=== PATIENT | female | born 1995 | race Caucasian/White ===

== ENCOUNTER 2018-07-25 11:15 | Emergency (ER) | payer OTHER ==
--- NOTE | 2018-07-25 12:36 | ER ---
Nurse's Notes [facility] Name: Meryl Vernon Age: 23 yrs Sex: Female : 1995 Arrival Date: 07/25/2018 Time: 11:18 Bed Treatment Private MD: None, None Diagnosis: Acute sinusitis Presentation: 07/25 11:39 Presenting complaint: Patient states: Sinus pressure, sore throat, cough, congestion aj1 and upper back pain since yesterday. Denies fever, SOB. Patient reports that she is currently 10 weeks . Transition of care: patient was not received from another setting of care. Onset of symptoms was July 24, 2018. Risk Assessment: Do you want to hurt yourself or someone else? Patient reports no desire to harm self or others. Initial Sepsis Screen: Does the patient meet any 2 criteria?. Initial Sepsis Screen: Does the patient meet any 2 criteria? HR > 90 bpm. No. Patient's initial sepsis screen is negative. Does the patient have a suspected source of infection? Yes: Productive cough/pneumonia. Care prior to arrival: None. 11:39 Method Of Arrival: Ambulatory aj1 11:39 Acuity: LILLIAN 4 aj1 Triage Assessment: 11:41 General: Appears in no apparent distress. comfortable, Behavior is calm, cooperative, aj1 appropriate for age. Pain: Denies pain. EENT: Reports nasal congestion nasal discharge sore throat. Neuro: Level of Consciousness is awake, alert, obeys commands. Cardiovascular: Patient's skin is warm and dry. Respiratory: Reports cough that is non-productive, Airway is patent Respiratory effort is even, unlabored, Respiratory pattern is regular, symmetrical, Denies shortness of breath. 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 - Social history:: Smoking status: Patient/guardian denies using tobacco. - Ebola Screening: : Patient denies travel to an Ebola-affected area in the 21 days before illness onset. Vital Signs: 11:41 BP 121 / 87; Pulse 86; Resp 20; Temp 97.7; Pulse Ox 99% on R/A; Weight 69.85 kg (R); aj1 Height 5 ft. 1 in. (154.94 cm) (R); Pain 0/10; 11:41 Body Mass Index 29.10 (69.85 kg, 154.94 cm) aj1 ED Course: 11:18 Patient arrived in ED. sb2 11:19 None, None is Private Physician. sb2 11:41 Triage completed. aj1 11:41 Arm band placed on Patient placed in an exam room. aj1 11:42 [facility] kb 11:42 Isidro Carbajal MD is Attending Physician. kb Administered Medications: No medications were administered Outcome: 12:35 Discharge ordered by . kb 12:46 Patient left the ED. hb Signatures: Do Ott FNP-C FNP-Ckb Johnson, Angela, RN RN aj1 Radha Boone RN RN Phyllis Clayton sb2
--- NOTE | 2018-07-25 12:36 | EDPHYS ---
Physician Documentation [facility] Name: Meryl Vernon Age: 23 yrs Sex: Female : 1995 Arrival Date: 07/25/2018 Time: 11:18 Bed Treatment Private MD: None, None ED Physician Isidro Carbajal HPI: 07/25 12:32 This 23 yrs old Female presents to ER via Ambulatory with complaints of Sore kb Throat, Sinus Pain. 12:32 The patient presents with sore throat. The patient describes throat pain as constant. kb Onset: The symptoms/episode began/occurred yesterday. Severity of symptoms: At their worst the symptoms were moderate, in the emergency department the symptoms are unchanged. Modifying factors: The symptoms are alleviated by nothing, the symptoms are aggravated by nothing, Patient's oral intake status: good. Associated signs and symptoms: Pertinent positives: cough, Sore throat. The patient has not experienced similar symptoms in the past. The patient has not recently seen a physician. Pt reports cough and congestion that started yesterday. Denies fever. . 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 - Social history:: Smoking status: Patient/guardian denies using tobacco. - Ebola Screening: : Patient denies travel to an Ebola-affected area in the 21 days before illness onset. ROS: 12:31 Constitutional: Negative for fever, chills, and weight loss, Neck: Negative for injury, kb pain, and swelling, Cardiovascular: Negative for chest pain, palpitations, and edema, Abdomen/GI: Negative for abdominal pain, nausea, vomiting, diarrhea, and constipation, Back: Negative for injury and pain, MS/Extremity: Negative for injury and deformity, Skin: Negative for injury, rash, and discoloration, Neuro: Negative for headache, weakness, numbness, tingling, and seizure. 12:31 ENT: Positive for rhinorrhea, sinus congestion. 12:31 Respiratory: Positive for cough, Negative for dyspnea on exertion, hemoptysis, orthopnea, pleurisy, shortness of breath, sputum production, wheezing. Exam: 12:32 Constitutional: This is a well developed, well nourished patient who is awake, alert, kb and in no acute distress. Head/Face: Normocephalic, atraumatic. ENT: Nares patent. No nasal discharge, no septal abnormalities noted. Tympanic membranes are normal and external auditory canals are clear. Oropharynx with no redness, swelling, or masses, exudates, or evidence of obstruction, uvula midline. Mucous membranes moist. Neck: Trachea midline, no thyromegaly or masses palpated, and no cervical lymphadenopathy. Supple, full range of motion without nuchal rigidity, or vertebral point tenderness. No Meningismus. Chest/axilla: Normal chest wall appearance and motion. Nontender with no deformity. No lesions are appreciated. Cardiovascular: Regular rate and rhythm with a normal S1 and S2. No gallops, murmurs, or rubs. Normal PMI, no JVD. No pulse deficits. Respiratory: Lungs have equal breath sounds bilaterally, clear to auscultation and percussion. No rales, rhonchi or wheezes noted. No increased work of breathing, no retractions or nasal flaring. Abdomen/GI: Soft, non-tender, with normal bowel sounds. No distension or tympany. No guarding or rebound. No evidence of tenderness throughout. Skin: Warm, dry with normal turgor. Normal color with no rashes, no lesions, and no evidence of cellulitis. MS/ Extremity: Pulses equal, no cyanosis. Neurovascular intact. Full, normal range of motion. Neuro: Awake and alert, GCS 15, oriented to person, place, time, and situation. Cranial nerves II-XII grossly intact. Motor strength 5/5 in all extremities. Sensory grossly intact. Cerebellar exam normal. Normal gait. Vital Signs: 11:41 BP 121 / 87; Pulse 86; Resp 20; Temp 97.7; Pulse Ox 99% on R/A; Weight 69.85 kg (R); aj1 Height 5 ft. 1 in. (154.94 cm) (R); Pain 0/10; 11:41 Body Mass Index 29.10 (69.85 kg, 154.94 cm) aj1 MDM: 12:31 Data reviewed: vital signs, nurses notes. Data interpreted: Pulse oximetry: on room air kb is 99 %. Interpretation: normal. Counseling: I had a detailed discussion with the patient and/or guardian regarding: the historical points, exam findings, and any diagnostic results supporting the discharge/admit diagnosis, lab results, the need for outpatient follow up, a family practitioner, to return to the emergency department if symptoms worsen or persist or if there are any questions or concerns that arise at home. 07/25 11:43 Order name: Flu; Complete Time: 12:31 07/25 11:43 Order name: Strep; Complete Time: 12:11 07/25 12:05 Order name: Throat Culture EDMS MDM: 11:44 Patient medically screened. kb 07/25 11:43 Order name: Flu; Complete Time: 12:31 07/25 11:43 Order name: Strep; Complete Time: 12:11 07/25 12:05 Order name: Throat Culture EDMS Administered Medications: No medications were administered Disposition: 13:29 Co-signature as Attending Physician, Isidro Carbajal MD. rn Disposition: 07/25/18 12:35 Discharged to Home. Impression: Acute sinusitis. - Condition is Stable. - Discharge Instructions: Sinusitis, Adult, [id number]. - Medication Reconciliation Form, Thank You Letter, Antibiotic Education, Prescription Opioid Use form. - Follow up: Emergency Department; When: As needed; Reason: Worsening of condition. Follow up: Private Physician; When: 2 - 3 days; Reason: Recheck today's complaints, Continuance of care, Re-evaluation by your physician. Signatures: Dispatcher Med[facility] EDMN Do Ott, LIZETH VARGASP-Mary Stuart RN RN aj1 Isidro Carbajal MD MD rn Baxter, Heather, RN RN hb Corrections: (The following items were deleted from the chart) 12:46 12:35 07/25/2018 12:35 Discharged to Home. Impression: Acute sinusitis. Condition is hb Stable. Forms are Medication Reconciliation Form, Thank You Letter, Antibiotic Education, Prescription Opioid Use. Follow up: Emergency Department; When: As needed; Reason: Worsening of condition. Follow up: Private Physician; When: 2 - 3 days; Reason: Recheck today's complaints, Continuance of care, Re-evaluation by your physician. kb
[2018-07-25 12:57] VITALS: BP 121/87; TEMP 97.7; O2SAT 99
== END 2018-07-25 12:46 | disposition home or self-care (01) ==
LOC: ER 11:15
DX: J01.90 Acute sinusitis, unspecified (principal)
CPT/HCPCS: 87070; 87081; 87804; 99281

== ENCOUNTER 2019-02-12 16:30 | Inpatient (IN) | payer OTHER ==
[2019-02-12] MEDS ORDERED: Ringers Lactate 1,000 ML IV PRN (19:04)
[2019-02-12] MEDS ORDERED: NA CIT/CITRIC AC 30 ML ORAL UDC PO ONE (19:09)
[2019-02-12 19:31] LABS: Urine Appearance CLEAR; Urine Bilirubin NEGATIVE (NEG); Urine Blood NEGATIVE (NEG); Urine Color YELLOW; Urine Glucose NEGATIVE (NEG); Urine Protein NEGATIVE (NEG); Urine Specific Gravity 1.025 (1.005-1.030)
[2019-02-12 19:38] LABS: Urine Microscopic Reflex NO UMIC
[2019-02-12] MEDS ORDERED: CEFAZOLIN 2 GM in NA CHLORIDE 0.9% 100 ML IVPB ONE (19:38)
[2019-02-12 19:45] VITALS: BMI 32.1
[2019-02-12] MEDS ORDERED: METHYLERGONOVINE 0.2MG/ML AMP IM ONE (19:45)
[2019-02-12] MEDS ORDERED: CARBOPROST TROME 250 MCG/ML IM ONE (19:45)
[2019-02-12 19:46] LABS: Absolute Lymphocytes (CBC) 1.3 K/uL (0.7-4.9); Basophils % 0.8 % (0-1.3); Hematocrit 29.9 % (36.0-45.0); Lymphocytes % 16.5 % (15.3-44.8); MPV 9.9 fL (7.6-11.3); RBC Red Blood Cell Count 3.59 M/uL (3.86-4.86)
[2019-02-12] MEDS ORDERED: FENTANYL CITR 250 MCG/5 ML ONE (19:49)
[2019-02-12] MEDS ORDERED: MORPHINE SULFATE/PF 1 MG/ML (10 ML AMP) ONE (19:49)
[2019-02-12] MEDS ORDERED: Phenylephrine HCl 10 MG/ML 1 ML VIAL ONE (19:56)
[2019-02-12] MEDS ORDERED: OXYTOCIN 10 UNIT/ML ML IV ONE (19:57)
[2019-02-12] MEDS ORDERED: PROMETHAZINE 25 MG/ML VIAL ONE (19:59)
[2019-02-12] MEDS ORDERED: METOCLOPRAMIDE 10 MG/2mL INJ IV ONE (20:00)
[2019-02-12] MEDS ORDERED: Ringers Lactate 1,000 ML IV SCH (20:00)
[2019-02-12] MEDS ORDERED: OXYTOCIN/LR 20 UNIT/1,000 ML BAG IV SCH (20:00)
[2019-02-12] MEDS ORDERED: CEFAZOLIN/SWI 2gm 2 GM/20 ML SYR ONE (20:22)
--- NOTE | 2019-02-12 20:34 | P.OBGYNHP ---
Certification for Inpatient Patient admitted to: Inpatient With expected LOS: >2 Midnights Patient will require the following post-hospital care: None Practitioner: I am a practitioner with admitting privileges, knowledge of patient current condition, hospital course, and medical plan of care. Services: Services provided to patient in accordance with Admission requirements found in Title 42 Section 412.3 of the Code of Federal Regulations Patient History Date of Service: 02/12/19 Reason for admission: LABOR History of Present Illness: Patient is a 23 y/o at 38 weeks gestation who presents in active labor with a h/o one prior section and was scheduled for repeat section at 39 weeks gestation. Patient is c/o contractions that are occuring every 3-5 minutes and have been going on all day. She states that the pain has worsened. She denies vaginal bleeding and no leakage of fluid. Patient states that she reports good movements. She has obtained adequate care. She has not had complications during the . NIPT was low risk. RH positive. She has seen [facility] for this as well due to h/o prior complicated by a child born with Wilm's tumor. No issues seen on ultrasounds with this . See record for further details. Allergies ondansetron HCl [From Zofran (as hydrochloride)] Allergy (Verified 03/03/15 13: 09) Nausea/Vomiting Home Medications: Pnv95/Ferrous Fumarate/FA [ Vitamin Tablet] 1 each PO DAILY 04/02/17 Acetaminophen [Tylenol] 1 tab PO DAILY 02/12/19 - Past Medical/Surgical History Diabetic: No -: bunions from both feet removed and screws removed. -: gallbladder -: appendectomy -: section 2016 - Family History Father -: Kidney disease Notes: Pt doesn't know the extent of the kidney problems, also cancer runs on her dads side but she doesn't know what types. - Social History Smoking Status: Never smoker Alcohol use: No CD- Drugs: No Caffeine use: Yes Place of Residence: Home Review of Systems 10-point ROS is otherwise unremarkable Physical Examination - Vital Signs Temperature: 98.1 F Blood Pressure: 120/68 Pulse: 103 Respirations: 18 - General General: Alert, Oriented x3, Moderate distress HEENT: Atraumatic Neck: Supple Respiratory: Normal air movement Cardiovascular: No edema, Normal pulses Breasts: Normal configuration, Normal contours Gastrointestinal: No rebound, No guarding, Other (Gravid) Musculoskeletal: No clubbing, No swelling Integumentary: No rashes, No breakdown Neurological: Normal gait, Normal speech - Female Pelvic External genitalia: Normal Vagina: Normal, [place], Moist Cervix: Dilation (3 cm), Effacement (60%), station (-2) Uterus: Gravid Adnexa: Unable to evaluate - Obstetrics heart rate tracing: Category 2 Contractions: Frequency (every 3-5 minutes) Amniotic membrane: Intact Laboratory Data (last 24 hrs) 02/12/19 19:30: WBC 7.7, Hgb 9.7 L, Hct 29.9 L, Plt Count 195 Assessment and Plan - Plan Patient is a 23 y/o at 38 weeks gestation who presents in active labor with a h/o one prior section, plan is to admit patient patient for repeat section. Ancef 2 grams given IVPB. Gomez catheter inserted. Discharge Plan: Home Plan to discharge in: 48 Hours - Advance Directives Does patient have a Living Will: No Does patient have a Durable POA for Healthcare: No
[2019-02-12] MEDS ORDERED: Oxycodone HCl/Acetaminophen 1 TAB TAB PO PRN ×2 (21:47)
[2019-02-12] MEDS ORDERED: BISACODYL 10 MG RECTAL SUPP RECT PRN (21:47)
[2019-02-12] MEDS ORDERED: ONDANSETRON 4 MG (ODT) TAB PO PRN (21:47)
[2019-02-12] MEDS ORDERED: KETOROLAC 30 MG/ML INJ IV PRN (21:47)
[2019-02-12] MEDS ORDERED: ACETAMINOPHEN 500 MG TAB PO PRN (21:47)
[2019-02-12] MEDS ORDERED: DOCUSATE NA/SENNA CONC 1 TAB PO PRN (21:47)
[2019-02-12 21:57] LABS: RPR (Rapid Plasma Reagin) NON-REACT (NON-REACT)
[2019-02-12] MEDS ORDERED: DIPHENHYDRAMINE 25 MG TAB/CAP PO PRN (22:58)
[2019-02-13] MEDS ORDERED: PROMETHAZINE 25 MG/ML VIAL IV PRN (06:31)
[2019-02-13 08:19] LABS: Absolute Lymphocytes (CBC) 0.8 K/uL (0.7-4.9); Basophils % 0.4 % (0-1.3); Hematocrit 27.7 % (36.0-45.0); Lymphocytes % 8.2 % (15.3-44.8); MPV 9.8 fL (7.6-11.3)
[2019-02-13 08:40] LABS: Anisocytosis 1+; Blood Morphology Comment NOTED (NOT SEEN); Platelet Estimate ADEQ; Poikilocytosis 1+; Urine White Blood Cell Casts OK
[2019-02-13] MEDS ORDERED: FAMOTIDINE 20 MG/2 ML VIAL IV SCH (09:00)
[2019-02-13] MEDS ORDERED: IBUPROFEN 200 MG TAB PO ONE (14:11)
--- NOTE | 2019-02-13 15:07 | P.PN ---
Date of Service: 02/13/19 Selected Entries 02/13/19 02/13/19 02/13/19 08:00 10:00 14:00 Temperature 98.3 F 97.7 F Pulse Rate 78 78 Respiratory 16 18 Rate Blood Pressure 99/62 114/55 L Pain Level 2 2 O2 Sat by Pulse 97 Oximetry 02/13/19 14:10 Temperature Pulse Rate Respiratory Rate Blood Pressure Pain Level 5 O2 Sat by Pulse Oximetry Laboratory Tests 02/12/19 02/13/19 19:30 08:03 WBC 7.7 9.3 D Hgb 9.7 L 9.6 L Hct 29.9 L 27.7 L Plt Count 195 161
[2019-02-14] MEDS ORDERED: IBUPROFEN 400 MG TAB ONE (07:27)
[2019-02-14] MEDS ORDERED: IBUPROFEN 200 MG TAB PO PRN (07:27)
[2019-02-14] MEDS ORDERED: MEASLES,MUMPS,RUBELLA VAC 0.5ML SQVAC ONE (12:00)
[2019-02-14] MEDS ORDERED: Tdap (Diph,Pertuss(Acell),Tet Vac) 0.5 ML SYR IMVAC ONE (12:00)
[2019-02-14 15:26] VITALS: BP 122/64; TEMP 98
[2019-02-14] MEDS ORDERED: IBUPROFEN 400 MG TAB PO PRN (23:00)
[2019-02-16 03:28] LABS: HBsAG Nonreactive (Nonreactive)
--- NOTE | 2019-02-21 11:24 | P.OP ---
Bell Captain: Violette Naik Preoperative diagnosis: term , labor, prior section Postoperative diagnosis: same Primary procedure: Repeat low transverse section Anesthesia: Spinal Estimated blood loss: 800cc Specimen: cord blood, placenta Findings: female , 8/8, weight 6 lb 15 oz Operative Technique: The patient was taken to the operating room where spinal anesthesia was found to be adequate. The patient was prepped and draped in the usual sterile fashion in the dorsal supine position with a left-gayle tilt. A Pfannenstiel skin incision was made with the scalpel and carried through to the underlying layer of fascia using the scalpel.. The fascia was incised in the midline and extended laterally using Dupont scissors. Cintia clamps were used to elevate the superior aspect of the fascial incision, which was elevated, and the underlying rectus muscles were dissected off bluntly and using Dupont scissors. Attention was then turned to the inferior aspect of the fascial incision, which in similar fashion was grasped with Cintia clamps, elevated, and the underlying rectus muscles were dissected off bluntly and using Dupont scissors. The rectus muscles were dissected in the midline. The peritoneum was bluntly dissected, entered, and extended superiorly and inferiorly with good visualization of the bladder. The bladder blade was inserted. The vesicouterine peritoneum was identified with pickups and entered sharply using Metzenbaum scissors. This incision was extended laterally and the bladder flap was created digitally. The bladder blade was reinserted. The lower uterine segment was incised in a transverse fashion using the scalpel and extended using manual traction. Clear fluid was noted. The infant was subsequently delivered atraumatically. The nose and mouth were bulb suctioned. The cord was clamped and cut. The was subsequently handed to the awaiting nursery nurse. Next, cord blood was obtained. Subsequent to the collection of this blood, the placenta was removed spontaneously intact with a 3 -vessel cord noted. The uterine incision was repaired in 2 layers using 0 vicryl suture. Hemostasis was visualized. The uterine incision was reexamined and was noted to be hemostatic. Bladder flap was reapproximated with a 3.0 vicryl. The rectus muscles were reapproximated in the midline using 3-0 Vicryl. The fascia was closed with 0 Vicryl, the subcutaneous layer was closed with 3-0 plain gut, and the skin was closed with 3.0 vicryl on a Humble needle. Sponge, lap, and instrument counts were correct x2. The patient was stable at the completion of the procedure and was subsequently transferred to the recovery room in stable condition. Complications: None Drain(s): Urinary catheter Transferred to: Recovery Room Condition: Good
== END 2019-02-14 14:00 | disposition home or self-care (01) | DRG 788 ==
LOC: L&D 16:30 → 2ND-WC 18:23
PROVIDERS: ADMIT Student in an Organized Health Care Education/Training Program; ATTEND Student in an Organized Health Care Education/Training Program
PROC: 10D00Z1 Extraction of Products of Conception, Low, Open Approach (ICD-10-PCS; principal; 2019-02-12 20:30)
DX: O34.211 Maternal care for low transverse scar from previous cesarean delivery (principal); Z3A.38 38 weeks gestation of pregnancy; Z37.0 Single live birth
CPT/HCPCS: 36415; 81003; 85025; 86592; 86850; 86900; 86901; 87340; 88307; 90471; 90707; 90715; J0690; J2210; J2370; J2550; J2590; J2765; J3010